=== PATIENT | female | born 1980 | race Hispanic/Latino ===

== ENCOUNTER 2021-12-21 10:54 | Outpatient (CLI) | payer SELFPAY | END 2021-12-21 10:55 | disposition home or self-care (01) | LOC: CSHLAB 10:54 | PROVIDERS: ATTEND Obstetrics & Gynecology | DX: Z01.818 Encounter for other preprocedural examination (principal) | CPT/HCPCS: 80048; 84703; 85027; 86850; 86900; 86901; 93005; 93010; U0003; U0005 ==

== ENCOUNTER 2021-12-21 11:00 | Inpatient (IN) | payer OTHER ==
[2021-12-21 12:38] LABS: Hemoglobin 13.5 g/dL (12.0-15.5); Mean Corpuscular HGB CONC 32.7 g/dL (32.0-36.0); Mean Corpuscular Hemoglobin 29.1 pg (27.0-33.0); Mean Platelet Volume 9.9 fl (7.4-10.4); Platelet Count 244 10x3/uL (150-450); RBC Distribution Width 13.6 % (11.5-14.5); Red Blood Cell (RBC) Count 4.64 10x6/uL (3.90-5.03); White Blood Cell (WBC) Count 8.9 10x3/uL (3.5-10.5)
[2021-12-21 12:58] LABS: BHCG - Serum Negative (NEGATIVE); Pregs Control Background? CLEAR/WHITE (CLR/WHITE); Pregs Control Bar Appear? YES (CONTROL BAR)
[2021-12-21 13:02] LABS: Anion Gap 16 mmol/L (10-20); BUN (Urea Nitrogen) 13 mg/dL (7.0-18.7); Calc. Creatinine Clearance 0 mL/min (70-130); Calcium 9.5 mg/dL (7.8-10.44); Carbon Dioxide 23 mmol/L (22-29); Chloride 107 mmol/L (98-107); Glucose 102 mg/dL (70-105); Potassium 4.5 mmol/L (3.5-5.1); Sodium 141 mmol/L (136-145)
[2021-12-22 11:47] LABS: SARS-CoV-2 PCR by NAA Not Detected (NotDetected)
[2021-12-26] MEDS ORDERED: CeleCOXIB 100 MG CAP ONE (06:15)
[2021-12-26] MEDS ORDERED: Gabapentin 300 MG CAP ONE (06:15)
[2021-12-26] MEDS ORDERED: Lidocaine 1% MPF 2 ML VIAL ONE (06:15)
[2021-12-26] MEDS ORDERED: Famotidine/PF 20 mg/2ml Vial ONE (06:16)
[2021-12-26 06:51] VITALS: BMI 35.0
[2021-12-26] MEDS ORDERED: EPINEPHrine 1 MG/ML AMP ONE (07:05)
[2021-12-26] MEDS ORDERED: Bupivacaine PF 0.5% 30 ML VIAL ONE (07:06)
[2021-12-26] MEDS ORDERED: Fentanyl 100 MCG/2 ML VIAL ONE ×3 (07:07→10:04)
[2021-12-26] MEDS ORDERED: Dexamethasone 4 mg/ml Vial ONE (07:07)
[2021-12-26] MEDS ORDERED: Lidocaine 1% PF 5 ML VIAL ONE (07:07)
[2021-12-26] MEDS ORDERED: PROPOFOL 20 ML ONE (07:07)
[2021-12-26] MEDS ORDERED: Ondansetron PF 4 MG/2 ML Vial ONE (07:07)
[2021-12-26] MEDS ORDERED: Rocuronium Bromide 10 MG/ML (10ML VIAL) ONE (07:11)
[2021-12-26] MEDS ORDERED: ceFAZolin 2 GM/Dextrose 50 ML IVPB ONE (07:19)
[2021-12-26] MEDS ORDERED: Midazolam HCl 2 mg/2 ml Vial ONE ×2 (07:28→08:41)
[2021-12-26] MEDS ORDERED: Tranexamic Acid 1,000 MG/10 ML VIAL ONE ×3 (08:19→09:45)
[2021-12-26] MEDS ORDERED: Albumin 5% 500 ML ONE (08:22)
[2021-12-26] MEDS ORDERED: PHENYLEPHRINE-NS 100 MCG/ML 10 ML SYRINGE ONE (08:33)
[2021-12-26] MEDS ORDERED: Methylene Blue 50 MG/10 ML AMPUL ONE (09:16)
[2021-12-26] MEDS ORDERED: CEFAZOLIN 1 GM VIAL ONE (09:27)
[2021-12-26 09:37] LABS: Hemoglobin 8.1 g/dL (12.0-15.5)
[2021-12-26] MEDS ORDERED: Glycopyrrolate 0.2 MG/ML 5 ML SYRINGE ONE (09:57)
[2021-12-26] MEDS ORDERED: ePHEDrine Sulfate 50 MG/10 ML VIAL ONE (10:17)
[2021-12-26] MEDS ORDERED: fentaNYL Citrate/PF 1,000 MCG, Admixture Fee 1 EACH in Sodium Chloride 0.9% 30 ML IV PRN (11:30)
[2021-12-26] MEDS ORDERED: Simethicone Chewable 80 MG TAB PO PRN (12:34)
[2021-12-26] MEDS ORDERED: Bisacodyl 10 MG SUPP PR PRN (12:34)
[2021-12-26] MEDS ORDERED: Ondansetron PF 4 MG/2 ML Vial IVP PRN (12:34)
[2021-12-26] MEDS ORDERED: Morphine 4 MG/ML VIAL SLOW IVP PRN (12:34)
[2021-12-26] MEDS ORDERED: Zolpidem Tartrate 5 MG TAB PO PRN (12:34)
[2021-12-26] MEDS ORDERED: HYDROcodone/Acetaminophen 5/325 mg Tablet PO PRN (12:34)
[2021-12-26] MEDS ORDERED: diphenhydrAMINE 25 MG CAP PO PRN (12:34)
[2021-12-26] MEDS: Sodium Chloride 0.9% 1,000 ML IV SCH ×2 (12:36→21:41)
[2021-12-26] MEDS: Ibuprofen 800 MG TAB PO SCH (13:44)
[2021-12-26 14:22] LABS: Hemoglobin 8.9 g/dL (12.0-15.5); Mean Corpuscular HGB CONC 34.8 g/dL (32.0-36.0); Mean Corpuscular Hemoglobin 30.9 pg (27.0-33.0); Mean Corpuscular Volume 88.9 fl (81.6-98.3); Mean Platelet Volume 9.9 fl (7.4-10.4); Platelet Count 139 10x3/uL (150-450); RBC Distribution Width 13.2 % (11.5-14.5); Red Blood Cell (RBC) Count 2.88 10x6/uL (3.90-5.03); White Blood Cell (WBC) Count 14.6 10x3/uL (3.5-10.5)
[2021-12-26] MEDS: Ketorolac Tromethamine 30 MG/ML VIAL IVP PRN ×2 (15:35→21:42)
[2021-12-26] MEDS ORDERED: Communication Order-Pharmacy FS PRN (15:47)
[2021-12-27 04:27] LABS: Hemoglobin 6.5 g/dL (12.0-15.5); Mean Corpuscular HGB CONC 34.8 g/dL (32.0-36.0); Mean Corpuscular Hemoglobin 30.5 pg (27.0-33.0); Mean Corpuscular Volume 87.8 fl (81.6-98.3); Mean Platelet Volume 10.2 fl (7.4-10.4); Platelet Count 121 10x3/uL (150-450); RBC Distribution Width 13.3 % (11.5-14.5); Red Blood Cell (RBC) Count 2.13 10x6/uL (3.90-5.03); White Blood Cell (WBC) Count 12.3 10x3/uL (3.5-10.5)
[2021-12-27] MEDS: Ketorolac Tromethamine 30 MG/ML VIAL IVP PRN (08:13)
[2021-12-27] MEDS: HYDROcodone/Acetaminophen 5/325 mg Tablet PO PRN ×2 (09:03→20:14)
[2021-12-27] MEDS: Losartan 25 MG TAB PO SCH (09:05)
[2021-12-27] MEDS: Sodium Chloride 0.9% 1,000 ML IV SCH ×2 (09:40→22:38)
[2021-12-27] MEDS: Ibuprofen 800 MG TAB PO SCH ×2 (13:57→21:58)
[2021-12-27 16:13] LABS: Hemoglobin 7.8 g/dL (12.0-15.5)
[2021-12-28] MEDS: Ibuprofen 800 MG TAB PO SCH (05:41)
[2021-12-28 07:49] VITALS: TEMP 98.8
[2021-12-28 10:04] VITALS: BP 94/53
[2021-12-28] MEDS: Losartan 25 MG TAB PO SCH (10:05)
== END 2021-12-28 12:10 | disposition home or self-care (01) | DRG 742 ==
LOC: CSHERHOLD 12-26 05:48 → CSHPED 12-26 12:36
PROVIDERS: ADMIT Obstetrics & Gynecology; ATTEND Obstetrics & Gynecology
PROC: 0UT90ZZ Resection of Uterus, Open Approach (ICD-10-PCS; principal; 2021-12-26)
PROC: 0UT70ZZ Resection of Bilateral Fallopian Tubes, Open Approach (ICD-10-PCS; 2021-12-26)
PROC: 0TJB8ZZ Inspection of Bladder, Via Natural or Artificial Opening Endoscopic (ICD-10-PCS; 2021-12-26)
PROC: 30233N1 Transfusion of Nonautologous Red Blood Cells into Peripheral Vein, Percutaneous Approach (ICD-10-PCS; 2021-12-26)
DX: D25.9 Leiomyoma of uterus, unspecified (principal); R71.0 Precipitous drop in hematocrit; K43.9 Ventral hernia without obstruction or gangrene; Z20.822 Contact with and (suspected) exposure to COVID-19
CPT/HCPCS: 36415; 36430; 80048; 84703; 85014; 85018; 85027; 86850; 86900; 86901; 88307; J0171; J0690; J1100; J1885; J2250; J2405; J2704; J3010; J7050; P9016; P9045; Q9968; S0020; S0028; U0003; U0005